=== PATIENT | male | born 1970 | race Caucasian/White ===

== ENCOUNTER 2019-12-29 19:52 | Emergency (ER) | payer SELFPAY ==
[2019-12-29] MEDS ORDERED: SODIUM CHLORIDE 0.9% 1000ML 2,000 ML IVS ONE (20:08)
[2019-12-29] MEDS ORDERED: PROMETHAZINE HCL INJ 25 MG in SODIUM CHLORIDE 0.9% 50ML 50 ML IVPB ONE (20:08)
[2019-12-29 20:10] VITALS: TEMP 97.6; O2SAT 96
[2019-12-29] MEDS ORDERED: KETOROLAC TROMETHAMINE INJ 30 MG/ML VIAL IV ONE (21:02)
[2019-12-29 21:04] VITALS: BP 122/76
[2019-12-29] MEDS ORDERED: SODIUM CHLORIDE 0.9% (FLUSH) 10 ML SYG ONE (21:25)
[2019-12-29] MEDS ORDERED: SODIUM CHLORIDE 0.9% 1000ML 1,000 ML ONE (21:26)
--- NOTE | 2019-12-29 21:58 | ED.PDOC ---
History of Present Illness - General Chief Complaint: Headache Stated Complaint: headache for the past 2 hours c N/V Time Seen by Provider: 12/29/19 19:56 Source: patient Exam Limitations: no limitations - History of Present Illness Initial Comments: The patient is a 49-year-old male presented emergency room with fairly rapid onset of headache with associated nausea and vomiting after working outside in the 100 degrees heat for an extended period of time. No focal neurological changes. No fever prior. No nuchal rigidity. No altered mental status. No syncope. No chest pain. Timing/Duration: 1-3 hours Severity: severe Improving Factors: nothing Worsening Factors: nothing Associated Symptoms: diaphoresis, loss of appetite, malaise, nausea/vomiting, weakness Allergies/Adverse Reactions: Allergies NO KNOWN ALLERGY Allergy (Verified 12/29/19 20:45) Home Medications: Ambulatory Orders NK 12/29/19 Review of Systems - Review of Systems Constitutional: States: malaise, weakness EENTM: States: no symptoms reported Respiratory: States: no symptoms reported Cardiology: States: no symptoms reported Gastrointestinal/Abdominal: States: nausea, vomiting Genitourinary: States: no symptoms reported Musculoskeletal: States: no symptoms reported Skin: States: no symptoms reported Neurological: States: see HPI Endocrine: States: excessive sweating All other Systems: No Change from Baseline Past Medical History (General) - Patient Medical History Hx Seizures: No Hx Stroke: No Hx Dementia: No Hx Asthma: No Hx of COPD: No Hx Cardiac Disorders: No Hx Congestive Heart Failure: No Hx Pacemaker: No Hx Hypertension: No Hx Thyroid Disease: No Hx Diabetes: No Hx Gastroesophageal Reflux: No Hx Renal Disease: No Hx Cancer: No Hx of HIV: No Hx Hepatitis C: No Hx MRSA: No - Vaccination History Hx Tetanus, Diphtheria Vaccination: No Hx Influenza Vaccination: No Hx Pneumococcal Vaccination: No - Social History Hx Tobacco Use: Yes Hx Chewing Tobacco Use: No Hx Alcohol Use: No Hx Substance Use: No Hx Substance Use Treatment: No Hx Depression: No Feels Threatened In Home Enviroment: No Feels Threatened In a Relationship: No Hx Physical Abuse: No Hx Emotional Abuse: No - Female History Patient is a Female of Child Bearing Age (10 -59 yrs old): No Family Medical History - Family History Mother Family History: Unknown Physical Exam - Physical Exam General Appearance: Alert, Ill Appearing Eye Exam: bilateral normal Ears, Nose, Throat: hearing grossly normal, other - Mucous membranes are fairly dry Neck: non-tender, full range of motion, supple Respiratory: lungs clear, normal breath sounds, no respiratory distress, no accessory muscle use Cardiovascular/Chest: normal peripheral pulses, regular rate, rhythm, no edema Peripheral Pulses: radial,right: 2+, radial,left: 2+ Gastrointestinal/Abdominal: non tender, soft Rectal Exam: deferred Back Exam: no CVA tenderness, no vertebral tenderness Extremity: normal range of motion, non-tender, normal inspection, no pedal edema, normal capillary refill 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 tested, alert, normal mood/affect, oriented x 3 Skin Exam: pallor Comments: Laboratory Tests 12/29/19 12/29/19 20:15 20:15 WBC 8.7 RBC 4.94 Hgb 14.9 Hct 44.3 MCV 89.7 MCH 30.2 MCHC 33.7 RDW 15.1 H Plt Count 238 MPV 9.4 Absolute Neuts (auto) 6.20 Absolute Lymphs (auto) 1.60 Absolute Monos (auto) 0.50 Absolute Eos (auto) 0.30 Absolute Basos (auto) 0.00 Neutrophils % 71.6 Lymphocytes % 18.4 L Monocytes % 6.0 Eosinophils % 3.8 Basophils % 0.2 Sodium 138 Potassium 4.3 Chloride 102 Carbon Dioxide 25 Anion Gap 15.3 BUN 19 H Creatinine 1.09 BUN/Creatinine Ratio 17.4 Random Glucose 127 H Serum Osmolality 279.5 Calcium 9.8 Magnesium 2.2 Total Bilirubin 0.5 AST 21 ALT 18 Alkaline Phosphatase 75 Creatine Kinase 115 CK-MB (CK-2) 2.7 CK-MB (CK-2) % Not Reportable Troponin I 0.03 B-Natriuretic Peptide 7.4 Serum Total Protein 8.2 Albumin 4.7 Globulin 3.5 Albumin/Globulin Ratio 1.3 Progress - Progress Progress: 12/29/19 21:59 Vital Signs - 8 hr 12/29/19 12/29/19 20:05 21:00 Temperature 97.6 F Pulse Rate [ 96 H 96 H Pulse ox] Respiratory 16 16 Rate Blood Pressure 120/86 122/76 [Left Arm] O2 Sat by Pulse 96 96 Oximetry 12/29/19 21:59 The patient is a 49-year-old male presenting with heat exhaustion. The patient received a couple liters of IV fluids along with nausea medications and a medication for the headache. No evidence of rhabdomyolysis at this time. No evidence of a stroke. The patient does need to take it easy for the next week or 2 and avoid overheating. He needs to drink plenty of fluids. He needs to maintain a bland diet. Headache and nausea have essentially resolved. He needs to keep routine follow-up with his primary care doctor. ER warnings are given. teodora hernandez [id number] Departure - Departure Clinical Impression: Heat exhaustion Qualifiers: Encounter type: initial encounter Qualified Code(s): T67.5XXA - Heat exhaustion, unspecified, initial encounter Disposition: Discharge to Home or Self Care Condition: Fair Departure Forms: ED Discharge - Pt. Copy, Patient Portal Self Enrollment Instructions: Heat Exhaustion and Heat Stroke (DC) Diet: regular diet Activity: increase activity as tolerated Home Medications: Ambulatory Orders NK 12/29/19 Additional Instructions: The patient is a 49-year-old male presenting with heat exhaustion. The patient received a couple liters of IV fluids along with nausea medications and a medication for the headache. No evidence of rhabdomyolysis at this time. No evidence of a stroke. The patient does need to take it easy for the next week or 2 and avoid overheating. He needs to drink plenty of fluids. He needs to maintain a bland diet. Headache and nausea have essentially resolved. He needs to keep routine follow-up with his primary care doctor. ER warnings are given.
== END 2019-12-29 22:14 | disposition home or self-care (01) ==
LOC: ER 19:52
DX: T67.5XXA Heat exhaustion, unspecified, initial encounter (principal); R11.2 Nausea with vomiting, unspecified; R51 Headache; F17.200 Nicotine dependence, unspecified, uncomplicated; Y92.9 Unspecified place or not applicable
CPT/HCPCS: 80053; 82550; 82553; 83735; 83880; 84484; 85025; A4216; J1885; J2550; J7030

== ENCOUNTER 2020-02-15 23:36 | Inpatient (IN) | payer SELFPAY ==
[~2020-02-15 23:36] MED LIST: SODIUM CHLORIDE 0.9% 1000ML 1,000 ML IVS ONE
[2020-02-15] MEDS ORDERED: SODIUM CHLORIDE 0.9% (FLUSH) 10 ML SYG IV PRN (23:50)
[2020-02-15] MEDS ORDERED: DICYCLOMINE HCL INJ 20 MG/2 ML AMP IM ONE (23:50)
[2020-02-15] MEDS ORDERED: ONDANSETRON INJ 4 MG/2 ML VIAL IV ONE (23:50)
[2020-02-15] MEDS ORDERED: SODIUM CHLORIDE 0.9% 1000ML 1,000 ML IVS PRN (23:50)
[2020-02-16] MEDS ORDERED: SODIUM CHLORIDE 0.9% 1000ML 1,000 ML IVS ONE ×2 (00:27→03:20)
--- NOTE | 2020-02-16 01:01 | ED.PDOC ---
History of Present Illness - General Chief Complaint: GI Problem Stated Complaint: I can't stop throwing up Time Seen by Provider: 02/15/20 23:43 Information Source: patient, RN notes reviewed, Vital Signs reviewed, EMS notes reviewed, EMS, old records Exam Limitations: no limitations - History of Present Illness Initial Comments: This is a 50-year-old male with no significant past medical history presenting to the emergency department with nausea and vomiting that began around 4:00 this afternoon. He states he was working outside building a porch. He states he has been unable to stop vomiting since that time. He is reporting some mild generalized abdominal pain related to vomiting, no fever, no headache, no weakness/numbness/tingling. He does report some dark-colored urine. No sick contacts, no suspicious food intake. He denies any diarrhea. He denies any cough/URI symptoms, no known COVID contacts. Review of Systems - Review of Systems Constitutional: Denies: chills, fever EENTM: Denies: blurred vision, double vision, nose congestion, throat pain, mouth pain Respiratory: Denies: cough, short of breath, stridor, wheezing Cardiology: Denies: chest pain, edema, syncope Gastrointestinal/Abdominal: States: abdominal pain, nausea, vomiting. Denies: constipation, diarrhea Genitourinary: Denies: dysuria, hematuria Musculoskeletal: Denies: back pain, joint pain, muscle stiffness, neck pain Skin: Denies: lesions, rash Neurological: Denies: headache, paresthesia, pre-existing deficit, tingling, weakness Endocrine: States: no symptoms reported Hematologic/Lymphatic: States: no symptoms reported Past Medical History (General) - Patient Medical History Hx Seizures: No Hx Stroke: No Hx Dementia: No Hx Asthma: No Hx of COPD: No Hx Cardiac Disorders: No Hx Congestive Heart Failure: No Hx Pacemaker: No Hx Hypertension: No Hx Thyroid Disease: No Hx Diabetes: No Hx Gastroesophageal Reflux: No Hx Renal Disease: No Hx Cancer: No Hx of HIV: No Hx Hepatitis C: No Hx MRSA: No - Vaccination History Hx Tetanus, Diphtheria Vaccination: No Hx Influenza Vaccination: No Hx Pneumococcal Vaccination: No - Social History Hx Tobacco Use: Yes Hx Chewing Tobacco Use: No Hx Alcohol Use: No Hx Substance Use: No Hx Substance Use Treatment: No Hx Depression: No Hx Physical Abuse: No Hx Emotional Abuse: No - Female History Patient is a Female of Child Bearing Age (10 -59 yrs old): No Patient : No Family Medical History - Family History Mother Family History: Unknown Father Living Status: Hx Family Stroke: Yes Hx Family Cancer: Yes - Unknown Physical Exam - Physical Exam General Appearance: Alert, Ill Appearing, Well Developed, Well Groomed Eyes, Ears, Nose, Throat Exam: PERRL/EOMI, normal ENT inspection Neck: non-tender, full range of motion, supple Respiratory: lungs clear, normal breath sounds, no respiratory distress, no accessory muscle use Cardiovascular/Chest: normal peripheral pulses, regular rate, rhythm, no edema, no gallop, no JVD, no murmur Peripheral Pulses: No deficit Gastrointestinal/Abdominal: tenderness - Mild epigastric, right upper quadrant, negative Gonsales sign, no rebound/guarding Back Exam: normal inspection, no CVA tenderness, no vertebral tenderness Extremity: normal range of motion, non-tender, normal inspection Neurologic: no motor/sensory deficits, alert, normal mood/affect, oriented x 3 Skin Exam: normal color, warm/dry Progress - Progress Progress: 02/16/20 01:31 Rechecked. Discussed labs and plan for admission. Patient reporting ongoing back pain, abdominal pain is resolved. Nausea is improving. 02/16/20 01:41 Discussed case with VERONICA Alvarez. Reviewed labs, vital signs. Will admit. DDX: Dehydration, gastroenteritis, rhabdomyolysis MDM: Patient presenting with intractable vomiting since 4 PM this afternoon after working in the heat for several hours building a porch today. He had a similar presentation last month associated with dehydration. His creatinine at that time was 1.0. Creatinine today is 3.5. Potassium is normal, LFTs at this time relatively normal. CK is 650, but given acute renal failure, suspect early rhabdomyolysis. CK will likely need to be rechecked tomorrow after IV fluids. Will admit for IV hydration and symptom control. Wellington Phipps DO [facility] #[id number] - Results/Orders Results/Orders: 02/15/20 23:50 IV Care:Saline Lock per Protoc QSHIFT Sodium Chloride 0.9% (Flush) [Saline Flush Syringe] 10 ml IV PRN PRN Sodium Chloride 0.9% 1000ML [Ns 1000 ml] 1,000 ml IVS .QD EKG STAT 02/16/20 00:27 Sodium Chloride 0.9% 1000ML [Ns 1000 ml] 1,000 ml IVS ONCE 02/16/20 23:50 EKG STAT Laboratory Results - last 24 hr 02/15/20 02/15/20 02/16/20 23:40 23:40 00:11 WBC 12.2 H RBC 5.62 Hgb 17.2 Hct 49.4 MCV 88.0 MCH 30.7 MCHC 34.8 RDW 14.8 H Plt Count 269 MPV 9.5 Absolute Neuts (auto) 10.90 H Absolute Lymphs (auto) 0.80 L Absolute Monos (auto) 0.50 Absolute Eos (auto) 0.00 Absolute Basos (auto) 0.10 Neutrophils % 88.8 H Lymphocytes % 6.2 L Monocytes % 4.0 Eosinophils % 0.1 L Basophils % 0.9 Sodium 139 Potassium 4.5 Chloride 98 L Carbon Dioxide 22 Anion Gap 23.5 H BUN 44 H Creatinine 3.51 H BUN/Creatinine Ratio 12.5 Random Glucose 179 H Serum Osmolality 293.2 Calcium 10.8 H Total Bilirubin 1.1 H Direct Bilirubin 0.1 Indirect Bilirubin 1.0 H AST 40 ALT 24 Alkaline Phosphatase 88 Creatine Kinase Serum Total Protein 9.7 H Albumin 6.0 H Lipase 24 Urine Color Dk yellow Urine Appearance Clear Urine pH 5.0 Ur Specific [place] >= 1.030 Urine Protein 100 H Urine Glucose (UA) Negative Urine Ketones 15 H Urine Blood Trace-lysed H Urine Nitrite Negative Urine Bilirubin Moderate Urine Urobilinogen 0.2 Ur Leukocyte Esterase Negative Urine RBC 1-3 Urine WBC 0 Ur Epithelial Cells 0-1 Amorphous Sediment 1+ Urine Bacteria Rare 02/16/20 00:16 WBC RBC Hgb Hct MCV MCH MCHC RDW Plt Count MPV Absolute Neuts (auto) Absolute Lymphs (auto) Absolute Monos (auto) Absolute Eos (auto) Absolute Basos (auto) Neutrophils % Lymphocytes % Monocytes % Eosinophils % Basophils % Sodium Potassium Chloride Carbon Dioxide Anion Gap BUN Creatinine BUN/Creatinine Ratio Random Glucose Serum Osmolality Calcium Total Bilirubin Direct Bilirubin Indirect Bilirubin AST ALT Alkaline Phosphatase Creatine Kinase 657 H* Serum Total Protein Albumin Lipase Urine Color Urine Appearance Urine pH Ur Specific [place] Urine Protein Urine Glucose (UA) Urine Ketones Urine Blood Urine Nitrite Urine Bilirubin Urine Urobilinogen Ur Leukocyte Esterase Urine RBC Urine WBC Ur Epithelial Cells Amorphous Sediment Urine Bacteria EKG reviewed personally by me at 0002. Sinus rhythm, rate of 75, normal axis, borderline QTC at 462, nonspecific T wave changes in the inferior and lateral leads Departure - Departure Clinical Impression: Intractable nausea and vomiting, Acute kidney injury Rhabdomyolysis Qualifiers: Rhabdomyolysis type: non-traumatic Qualified Code(s): M62.82 - Rhabdomyolysis Time of Disposition: 01:44 Disposition: Admit Patient Condition: Fair Home Medications: Ambulatory Orders NK 12/29/19 Critical Care Note - Critical Care Note Total Time (mins): 33 Comments: Patient with evidence of acute renal failure and severe dehydration. Time spent in examining the patient, reviewing old records, reviewing labs, examining the patient, documentation, reviewing cardiac output measurements, rechecks, discussions with other providers.
--- NOTE | 2020-02-16 01:55 | HP ---
SUPERVISING PHYSICIAN: Bernard Garrett M.D. CHIEF COMPLAINT: Nausea and vomiting. HISTORY OF PRESENT ILLNESS: This is a 50 year-old male patient who was outside building a porch in the heat. Several hours before he went to the Emergency Room, he felt he got overheated and started having nausea and vomiting. He also said his urine was very dark. He came to the Emergency Room. His vital signs were temperature 96.8, heart rate 72, blood pressure 132/43, respiratory rate 18, O2 saturation 98% on room air. His lab was completed and showed a WBC of 12,200 with a hemoglobin of 17.2, hematocrit 49.4. He had a left shift on his differential. Sodium 139, potassium 4.5, chloride 98, carbon dioxide 22, BUN 44, creatinine 3.51. His baseline creatinine is about 1.1, calcium 10.8, bilirubin 1.1. Liver enzymes were within normal limits. Lipase was 24. Troponin was less than 0.02. Creatinine kinase was 657. He was given fluids as well as some Zofran and Bentyl. I was called for hospital admission. PAST MEDICAL HISTORY: 1. Bradycardia presently on no medications. PAST SURGICAL HISTORY: None. OUTPATIENT MEDICATIONS: None. ALLERGIES: NO KNOWN DRUG ALLERGIES. SOCIAL HISTORY: He lives in [place]. He smokes 1 pack of cigarettes daily and has for many years. He denies any ETOH or illicit drug use. REVIEW OF SYSTEMS: GENERAL: Negative for fever, chills or weight changes. HEENT: Negative for sinus symptoms, ear pain, vision changes or sore throat. RESPIRATORY: Negative for wheezing, coughing or shortness of breath. CARDIAC: Negative for chest pain, palpitations or tachycardia. GASTROINTESTINAL: Positive for abdominal pain with nausea and vomiting. Negative for constipation or diarrhea. GENITOURINARY: Positive for dark urine. Negative for hematuria or dysuria. MUSCULOSKELETAL: Negative for arthralgias or myalgias. SKIN: Negative for lesions or rashes. NEUROLOGIC: Negative for headaches, weakness or seizures. PHYSICAL EXAMINATION: VITAL SIGNS: Temperature 98.6, heart rate 70, blood pressure 133/86, respiratory rate 16, O2 saturation 98% on room air. GENERAL: This is a 50 year-old male patient lying in his hospital bed. He is in no acute distress. HEENT: Normocephalic, atraumatic. Pupils are equal and reactive. Oropharynx is clear. NECK: Supple without mass. RESPIRATORY: Essentially clear to auscultation bilaterally. CARDIOVASCULAR: Regular rate and rhythm. GASTROINTESTINAL: Abdomen is soft, nondistended, nontender. Bowel sounds are positive. NEUROLOGIC: Awake, alert and oriented times three. Cranial nerves II-XII are grossly intact as tested. SKIN: Warm and dry. LABORATORY: Followup labs this morning show a CBC that is unremarkable. Electrolytes are basically within normal limits. BUN is 36, creatinine has improved to 2.1. Liver enzymes are within normal limits. Creatinine kinase has gone up to 947. Urinalysis is unremarkable. All other labs and films have been reviewed via the EMR. ASSESSMENT: 1. Acute kidney injury. Baseline creatinine is 1.1. Admitting creatinine is 3.5. 2. Rhabdomyolysis. 3. Dehydration with nausea and vomiting. 4. History of bradycardia presently on no medications. 5. Tobacco abuse. PLAN: The patient has been admitted to the hospital. Will continue to give him fluids and hydrate him. Will monitor his kidney function closely as well as his CPK. I have discussed smoking cessation. He will have early ambulation for DVT prophylaxis. He has a PPI for ulcer prophylaxis. Hopefully he can be discharged in the next 24 hours. Will continue to monitor closely and follow as needed. #[id number] [facility]
[2020-02-16] MEDS ORDERED: ACETAMINOPHEN 325 MG TAB PO PRN (02:48)
[2020-02-16] MEDS ORDERED: IV SET AND CAP CHANGE INJ INJ SCH (03:00)
[2020-02-16] MEDS: PANTOPRAZOLE SODIUM IV 40 MG VIAL IV SCH (05:16)
[2020-02-16] MEDS: SODIUM CHLORIDE 0.9% (FLUSH) 10 ML SYG IV PRN ×2 (05:16→18:03)
[2020-02-16] MEDS ORDERED: SODIUM CHLORIDE 0.9% (FLUSH) 10 ML SYG IV SCH (09:00)
[2020-02-16] MEDS: SODIUM CHLORIDE 0.45% 1000ML 1,000 ML IVS PRN ×2 (12:02→19:48)
[2020-02-16] MEDS: ONDANSETRON INJ 4 MG/2 ML VIAL IV PRN (13:07)
[2020-02-16] MEDS ORDERED: CALCIUM CARBONATE (ANTACID) 500 MG CHEWABLE TAB PO PRN (22:18)
[2020-02-17] MEDS: SODIUM CHLORIDE 0.45% 1000ML 1,000 ML IVS PRN (03:32)
[2020-02-17] MEDS: ONDANSETRON INJ 4 MG/2 ML VIAL IV PRN (05:21)
[2020-02-17] MEDS: PANTOPRAZOLE SODIUM IV 40 MG VIAL IV SCH (05:41)
[2020-02-17] MEDS ORDERED: KCL 20MEQ/0.45% NS 1,000 ML IVS ONE (11:37)
[2020-02-17] MEDS ORDERED: MORPHINE SULFATE INJ 10 MG/ML VIAL ONE (19:37)
[2020-02-17] MEDS ORDERED: metFORMIN XR 500 MG TAB.ER.24 PO ONE (19:37)
[2020-02-17] MEDS ORDERED: ENOXAPARIN SODIUM 30 MG/0.3 ML SYG SUBCU ONE (19:38)
--- NOTE | 2020-02-17 20:05 | PN ---
SUPERVISING PHYSICIAN: LISETH BERRY MD DATE: 02/17/20 SUBJECTIVE: Patient is lying in bed asleep. He does not have much of an appetite but he is taking some oral fluids. He said he still feels quite weak but there is no chest pain or shortness of breath. OBJECTIVE: VITAL SIGNS: Temperature 98.3, heart rate 53, blood pressure 123/72, respiratory rate 16, oxygen saturation 97% on room air. RESPIRATORY: Essentially clear to auscultation literature. CARDIAC: Regular rate and rhythm. NEUROLOGICAL: He is awake, alert, and oriented x3. LABORATORY: WBC 7.1, hemoglobin 13.9, hematocrit 39.9. Electrolytes are basically within normal limits but his bilirubin is up to 1.1. Creatinine kinase is 819. His other liver enzymes are within normal limits. All other labs and films have been reviewed via the EMR. ASSESSMENT: 1. Acute kidney injury. Baseline creatinine is 1.1. Admitting creatinine is 3.5. His creatinine has now normalized. 2. Rhabdomyolysis. 3. Dehydration with nausea and vomiting. 4. History of bradycardia presently on no medications. 5. Tobacco abuse. PLAN: We will continue present supportive care. I will continue to hydrate the patient and encourage his oral intake to improve. I did repeat his CMP and CPK for in the morning. He also had incentive spirometry. I encouraged the patient to get up and walk around. Hopefully, he can be discharged tomorrow. #[id number] [facility]
[2020-02-18] MEDS: PANTOPRAZOLE SODIUM IV 40 MG VIAL IV SCH (05:26)
[2020-02-18 10:37] VITALS: O2SAT 93
[2020-02-18 10:58] VITALS: BP 123/78; TEMP 98.2
--- NOTE | 2020-02-26 08:56 | DS ---
SUPERVISING PHYSICIAN: Otf Weston MD ADMISSION DIAGNOSIS: 1. Acute kidney injury. Baseline creatinine is 1.1. Admitting creatinine is 3.5. 2. Rhabdomyolysis. 3. Dehydration with nausea and vomiting. 4. History of bradycardia presently on no medications. 5. Tobacco abuse. DISCHARGE DIAGNOSIS: 1. Acute kidney injury. Baseline creatinine is 1.1. Admitting creatinine is 3.5. His creatinine has now normalized. 2. Rhabdomyolysis. 3. Dehydration with nausea and vomiting. 4. History of bradycardia presently on no medications. 5. Tobacco abuse. REASON FOR HOSPITALIZATION: This is a 50 year-old male patient who was outside building a porch in the heat. Several hours before he went to the Emergency Room, he felt he got overheated and started having nausea and vomiting. He also said his urine was very dark. He came to the Emergency Room. His vital signs were temperature 96.8, heart rate 72, blood pressure 132/43, respiratory rate 18, O2 saturation 98% on room air. His lab was completed and showed a WBC of 12,200 with a hemoglobin of 17.2, hematocrit 49.4. He had a left shift on his differential. Sodium 139, potassium 4.5, chloride 98, carbon dioxide 22, BUN 44, creatinine 3.51. His baseline creatinine is about 1.1, calcium 10.8, bilirubin 1.1. Liver enzymes were within normal limits. Lipase was 24. Troponin was less than 0.02. Creatinine kinase was 657. He was given fluids as well as some Zofran and Bentyl. I was called for hospital admission. LABORATORY: Discharge white count was 7,100, hemoglobin 13.9, hematocrit 39.9, platelet count 184,000. Differential was without a left shift. Chemistries showed 134, otherwise electrolytes were within normal limits. Creatinine 0.85 compared to admission creatinine of 3.51. CPK was down to 435 prior to discharge. RADIOLOGY: No radiology available to review. EKG showed sinus rhythm without any ST or T-wave changes noted. HOSPITAL COURSE: Mr. Shields was admitted for rhabdomyolysis and treated with fluids. His kidney function ddi normalize as well as his CPK was showing good trend to baseline levels. He was able to take oral intake as well as good fluids p.o. maintenance. It was felt he had stabilized well enough to continue with outpatient management. PLAN: Mr. Shields was discharged on 02/18/20 with instructions to followup and establish with [facility]. He was encouraged to push fluids to prevent dehydration and return to the Emergency Department as needed. Diet was as tolerated. Activity to increase as tolerated, avoid extreme heat until completely recovered. No medications were prescribed on discharge. He was not on any chronic medications on admission. CONDITION ON DISCHARGE: Stable and improved. DISPOSITION: The patient was discharged home. #[id number] [facility]
== END 2020-02-18 11:00 | disposition home or self-care (01) | DRG 683 ==
LOC: ER 23:36 → MS 02-16 01:54 → OBSVTOIN 02-16 01:54
PROVIDERS: ADMIT Nurse Practitioner Acute Care; ATTEND Nurse Practitioner Family
DX: N17.9 Acute kidney failure, unspecified (principal); M62.82 Rhabdomyolysis; E86.0 Dehydration; F17.210 Nicotine dependence, cigarettes, uncomplicated; K52.9 Noninfective gastroenteritis and colitis, unspecified

== ENCOUNTER 2020-03-04 10:18 | Emergency (ER) | payer SELFPAY ==
[2020-03-04] MEDS ORDERED: SODIUM CHLORIDE 0.9% 1000ML 1,000 ML IVS ONE ×2 (10:49→12:10)
[2020-03-04] MEDS ORDERED: ONDANSETRON INJ 4 MG/2 ML VIAL IV ONE (10:49)
[2020-03-04] MEDS ORDERED: PANTOPRAZOLE SODIUM IV 40 MG VIAL IV ONE (10:49)
--- NOTE | 2020-03-04 10:51 | ED.PDOC ---
History of Present Illness - General Chief Complaint: GI Problem Stated Complaint: N/V,abd pain Time Seen by Provider: 03/04/20 10:45 Additional Information: Patient is a 50-year-old male who presents to the ED with chief complaint of vomiting. 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 He feels very weak and dehydrated. He complains of diffuse mild to moderate abdominal cramping but no manuela abdominal pain. Patient has not vomited any blood and has passed no blood per rectum, or melena. Patient denies recent alcohol consumption or drug use. Patient indicates he has had these symptoms once before and has been seen in the ED and given IV fluids and discharged, he does not have a history of intestinal issues. Past surgical history is negative for abdominal surgeries. Patient denies chest pain, shortness of breath. Review of Systems - Review of Systems Constitutional: States: see HPI, weakness. Denies: chills, diaphoresis, fever Respiratory: States: no symptoms reported. Denies: cough, short of breath Cardiology: States: no symptoms reported. Denies: chest pain, palpitations Gastrointestinal/Abdominal: States: see HPI, abdominal pain - Cramping, nausea, vomiting. Denies: diarrhea Genitourinary: States: no symptoms reported. Denies: dysuria Musculoskeletal: States: no symptoms reported. Denies: muscle pain Skin: States: no symptoms reported Neurological: States: no symptoms reported All other Systems: Reviewed and Negative Past Medical History (General) - Patient Medical History Hx Seizures: No Hx Stroke: No Hx Dementia: No Hx Asthma: No Hx of COPD: No Hx Cardiac Disorders: No Hx Congestive Heart Failure: No Hx Pacemaker: No Hx Hypertension: No Hx Thyroid Disease: No Hx Diabetes: No Hx Gastroesophageal Reflux: Yes Hx Renal Disease: No Hx Cancer: No Hx of HIV: No Hx Hepatitis C: No Hx MRSA: No Surgical History: no surgical history - Vaccination History Hx Tetanus, Diphtheria Vaccination: No Hx Influenza Vaccination: Yes Hx Pneumococcal Vaccination: No - Social History Hx Tobacco Use: Yes Hx Chewing Tobacco Use: No Hx Alcohol Use: No Hx Substance Use: No Hx Substance Use Treatment: No Hx Depression: No Hx Physical Abuse: No Hx Emotional Abuse: No - Female History Patient : No Family Medical History - Family History Mother Family History: Unknown Living Status: Father Living Status: Hx Family Stroke: Yes Hx Family Cancer: Yes - Unknown Physical Exam - Physical Exam General Appearance: Alert, Ill Appearing, Unkempt, Other - Patient appears much older than his stated age Neck: supple, normal inspection Respiratory: chest non-tender, lungs clear, normal breath sounds, no respiratory distress, no accessory muscle use Cardiovascular/Chest: normal peripheral pulses, regular rate, rhythm, no edema, no gallop, no JVD, no murmur Gastrointestinal/Abdominal: normal bowel sounds, soft, tenderness - Mild upper abdominal tenderness to palpation, no guarding Back Exam: normal inspection, no CVA tenderness Extremity: normal range of motion, no pedal edema 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 03/04/20 10:55 EKG: Normal sinus rhythm, rate 65, normal axis, normal QRS, Q waves V1 and V2, normal ST segment and T waves. Negative STEMI. EKG read by Aniket Mason MD. 03/04/20 14:37 Patient reassessed and is feeling much better at this time. He has had no further episodes of emesis in the ED and says that he feels strong after IV fluids. Patient's work-up today is unremarkable with the exception of slightly elevated creatinine at 1.7 which has been addressed with 2 L of normal saline. Patient CK is not elevated and he is not in rhabdomyolysis. I have instructed patient to rest at home and not to go to work today or tomorrow and to drink plenty of fluids and patient is in agreement. He would like to go home and declines observation for IV fluids. Vital signs stable, patient is NAD and looks clinically well and I believe is safe for discharge with outpatient follow-up. Follow-up instructions, discharge instructions and return to ED precautions discussed with patient. Patient voices understanding and willingness to comply with instructions. All laboratory and radiographic results have been discussed with the patient, and all questions answered. Jennifer eagle is happy with plan. Departure - Departure Clinical Impression: Dehydration, Acute renal insufficiency Time of Disposition: 14:39 Disposition: Discharge to Home or Self Care Condition: Fair Departure Forms: ED Discharge - Pt. Copy, Patient Portal Self Enrollment Instructions: Dehydration, Adult (DC) Activity: no exercise - For 2 days Referrals: VLADISLAV OLVERA MD [Active Staff] - 1-5 Days Prescriptions: Promethazine Tab [Phenergan Tablet] 25 mg PO Q6H PRN #12 tab PRN Reason: Vomiting Home Medications: Ambulatory Orders Promethazine Tab [Phenergan Tablet] 25 mg PO Q6H PRN #12 tab 03/04/20
[2020-03-04 11:58] VITALS: O2SAT 98
[2020-03-04 15:06] VITALS: BP 127/81; TEMP 98.6
--- NOTE | 2020-03-04 20:11 | CT ---
EXAM DESCRIPTION: Abdomen/Pelvis w/Contrast CLINICAL HISTORY: abd pain, vomiting COMPARISON: None Available TECHNIQUE: CT of the abdomen and Pelvis was performed with IV contrast. This exam was performed according to our departmental dose-optimization program, which includes automated exposure control, adjustment of the mA and/or kV according to patient size and/or use of iterative reconstruction technique. FINDINGS: No lung base abnormality. No pneumoperitoneum, adenopathy or ascites. No abdominal aortic aneurysm or dissection. Small hiatal hernia. No gastric wall thickening. No calcified gallstone. The liver, spleen, pancreas, adrenals and kidneys are unremarkable. No dilated small bowel loops or mesenteric inflammation. No bladder wall thickening. The prostate is not enlarged. No colonic wall thickening or pericolonic inflammation. Normal appendix. Bilateral L5-S1 pars defects with grade 1 anterolisthesis at the same level. No acute bone lesion. IMPRESSION: Small hiatal hernia, no acute abnormality in the abdomen or pelvis to explain abdominal pain and vomiting. Bilateral L5-S1 pars defects with grade 1 anterolisthesis at the same level. Electronically signed by: Leighton Fajardo MD 03/04/2020 12:00 PM CDT
== END 2020-03-04 15:06 | disposition home or self-care (01) ==
LOC: ER 10:18
DX: E86.0 Dehydration (principal); N28.9 Disorder of kidney and ureter, unspecified; R11.2 Nausea with vomiting, unspecified; K21.9 Gastro-esophageal reflux disease without esophagitis; Z87.891 Personal history of nicotine dependence
CPT/HCPCS: 36415; 74177; 80053; 80320; 82550; 82553; 83605; 84484; 85025; 93005; J2405; J7030

== ENCOUNTER 2020-05-12 18:31 | Emergency (ER) | payer SELFPAY ==
[2020-05-12 21:15] VITALS: BP 113/70; TEMP 97; O2SAT 96
== END 2020-05-12 20:36 | disposition home or self-care (01) ==
LOC: ER 18:31
DX: Z53.21 Procedure and treatment not carried out due to patient leaving prior to being seen by health care provider (principal)

== ENCOUNTER 2020-07-18 15:05 | Emergency (ER) | payer SELFPAY ==
[2020-07-18] MEDS ORDERED: SODIUM CHLORIDE 0.9% 1000ML 1,000 ML IVS ONE (15:20)
[2020-07-18] MEDS ORDERED: ONDANSETRON INJ 4 MG/2 ML VIAL IV ONE ×2 (15:20→17:00)
--- NOTE | 2020-07-18 15:22 | ED.PDOC ---
History of Present Illness - General Time Seen by Provider: 07/18/20 15:06 Information Source: patient, RN notes reviewed, Vital Signs reviewed, old records Exam Limitations: no limitations - History of Present Illness Initial Comments: 50 yo male comes in with the c/c of midepigastric pain and 3 days of n/v. states he can't keep anything down. States this happened 1 month ago and was told he was dehydrated. Denies ETOH use. no sick contacts. subjective fever. no cough or shortness of breath. no diarrhea or constipation, no black or bloody bm. no dysuria or hematuria. Review of Systems - Review of Systems Constitutional: States: malaise. Denies: chills EENTM: Denies: throat pain Respiratory: Denies: cough, short of breath Cardiology: Denies: chest pain Gastrointestinal/Abdominal: States: abdominal pain, nausea, vomiting. Denies: constipation, diarrhea Genitourinary: Denies: dysuria, hematuria Musculoskeletal: Denies: back pain, joint pain Skin: Denies: rash Neurological: Denies: headache, numbness Endocrine: Denies: unexplained weight loss Hematologic/Lymphatic: Denies: easy bleeding, easy bruising Past Medical History (General) - Patient Medical History Hx Seizures: No Hx Stroke: No Hx Dementia: No Hx Asthma: No Hx of COPD: No Hx Cardiac Disorders: No Hx Congestive Heart Failure: No Hx Pacemaker: No Hx Hypertension: No Hx Thyroid Disease: No Hx Diabetes: No Hx Gastroesophageal Reflux: No Hx Renal Disease: No Hx Cancer: No Hx of HIV: No Hx Hepatitis C: No Hx MRSA: No - Vaccination History Hx Tetanus, Diphtheria Vaccination: No Hx Influenza Vaccination: No Hx Pneumococcal Vaccination: No - Social History Hx Tobacco Use: Yes - Pack a day Hx Chewing Tobacco Use: No Hx Alcohol Use: No Hx Substance Use: No Hx Substance Use Treatment: No Hx Depression: No Hx Physical Abuse: No Hx Emotional Abuse: No Hx Suspected Abuse: No - Female History Patient : No Family Medical History - Family History Mother Family History: Unknown Living Status: Father Living Status: Hx Family Stroke: Yes Hx Family Cancer: Yes - Unknown Physical Exam - Physical Exam General Appearance: Alert, Comfortable, No apparent distress, Well Developed, Well Groomed, Well Hydrated, Well Nourished Eyes, Ears, Nose, Throat Exam: normal ENT inspection, other - no teeth Neck: full range of motion, supple, normal inspection Respiratory: chest non-tender, lungs clear, normal breath sounds, no respiratory distress, no accessory muscle use Cardiovascular/Chest: normal peripheral pulses, regular rate, rhythm, no edema, no gallop, no JVD, no murmur Peripheral Pulses: 2+ Gastrointestinal/Abdominal: normal bowel sounds, non tender, soft, no organomegaly, no pulsatile mass Rectal Exam: deferred Back Exam: normal inspection, no CVA tenderness, no vertebral tenderness Extremity: normal range of motion, normal inspection, no calf tenderness Neurologic: no motor/sensory deficits, alert, normal mood/affect, oriented x 3 Skin Exam: normal color, warm/dry Progress - Progress Progress: 07/18/20 17:29 partial ddx: gastirtis, pancreatitis, gallstones, renal stones, other patient given zofran and IVF. states he feels better. was given apple juice. emesis x 1. Will give phenergan, zofran and order CT scan. CT abd/pelvis IMPRESSION: 1. No acute intra-abdominal abnormality. 2. Wall thickening of the visualized lower esophagus which may represents nonspecific esophagitis. 3. Right nonobstructive nephrolithiasis. 07/18/20 18:27 patient po tolerant, given GI cocktail. The data reviewed when caring for this patient included: nurse notes, prior records, etc. The history and assessments from nurses notes were reviewed and considered, and the patient's home medication list was also reviewed and considered. My assessment and the results of testing completed here in the ED were discussed with the patient. All questions were answered, and he express understanding of my assessment and the plan. He have been instructed to return if their symptoms worsen, and have been asked to follow up with their primary care physician to recheck today's presenting complaint. he is trying to get established with Dr. green. may need egd in future. return precautions given. I have reviewed medication, benefits, a lternatives and side effects. Patient decided to proceed with medication.patient discharged home in stable condition. Amy Valenzuela DO #[id number] 07/18/20 18:28 - Results/Orders Results/Orders: 07/18/20 17:00 Hold Metformin x 48Hrs [id number] Laboratory Results WBC 8.9 K/mm3 (4.8-10.8) 07/18/20 15:25 RBC 5.77 M/mm3 (4.70-6.10) 07/18/20 15:25 Hgb 17.0 gm/dL (14.0-18.0) 07/18/20 15:25 Hct 50.1 % (42.0-52.0) 07/18/20 15:25 MCV 86.8 fl (80.0-94.0) 07/18/20 15: MCH 29.5 pg (27.0-31.0) 07/18/20 15:25 MCHC 34.0 g/dL (33.0-37.0) 07/18/20 15: RDW 14.0 % (11.5-14.5) 07/18/20 15: Plt Count 231 K/mm3 (130-400) 07/18/20 15:25 MPV 9.1 fl (7.40-10.4) 07/18/20 15:25 Absolute Neuts (auto) 5.90 K/uL (1.8-6.8) 07/18/20 15:25 Absolute Lymphs (auto) 1.70 K/uL (1.0-3.4) 07/18/20 15:25 Absolute Monos (auto) 1.20 K/uL (0.2-0.8) H 07/18/20 15:25 Absolute Eos (auto) 0.00 K/uL (0.0-0.4) 07/18/20 15:25 Absolute Basos (auto) 0.10 K/uL (0.0-0.1) 07/18/20 15:25 Neutrophils % 65.9 % (42.0-78.0) 07/18/20 15:25 Lymphocytes % 18.8 % (20.0-50.0) L 07/18/20 15:25 Monocytes % 13.9 % (2.0-9.0) H 07/18/20 15:25 Eosinophils % 0.2 % (1.0-5.0) L 07/18/20 15:25 Basophils % 1.2 % (0.0-2.0) 07/18/20 15:25 Sodium 139 mmol/L (135-145) 07/18/20 15:25 Potassium 3.4 mmol/L (3.6-5.0) L 07/18/20 15:25 Chloride 94 mmol/L (101-111) L 07/18/20 15:25 Carbon Dioxide 29 mmol/L (21-31) 07/18/20 15:25 Anion Gap 19.4 (12-18) H 07/18/20 15:25 BUN 21 mg/dL (7-18) H 07/18/20 15:25 Creatinine 1.07 mg/dL (0.6-1.3) 07/18/20 15:25 BUN/Creatinine Ratio 19.6 (10-20) 07/18/20 15:25 Random Glucose 123 mg/dL (70-105) H 07/18/20 15:25 Serum Osmolality 281.9 mOsm/L (275-295) 07/18/20 15:25 Calcium 9.9 mg/dL (8.4-10.2) 07/18/20 15:25 Total Bilirubin 1.2 mg/dL (0.2-1.0) H 07/18/20 15:25 AST 23 IU/L (10-42) 07/18/20 15:25 ALT 25 IU/L (10-60) 07/18/20 15:25 Alkaline Phosphatase 65 IU/L (42-121) 07/18/20 15:25 Serum Total Protein 8.4 gm/dL (6.4-8.2) H 07/18/20 15:25 Albumin 5.4 g/dl (3.2-5.5) 07/18/20 15:25 Globulin 3.0 gm/dL (2.3-3.5) 07/18/20 15:25 Albumin/Globulin Ratio 1.8 (1.1-1.9) 07/18/20 15:25 Lipase 27 U/L (22-51) 07/18/20 15:25 Urine Color Yellow (Yellow) 07/18/20 15:50 Urine Appearance Clear (Clear) 07/18/20 15:50 Urine pH 7.0 (4.5-7.8) 07/18/20 15:50 Ur Specific [place] 1.020 (1.005-1.030) 07/18/20 15:50 Urine Protein 100 mg/dL H 07/18/20 15:50 Urine Glucose (UA) Negative mg/dL (Negative) 07/18/20 15:50 Urine Ketones 80 mg/dL (NEGATIVE) H 07/18/20 15:50 Urine Blood Trace-intact (Negative) H 07/18/20 15:50 Urine Nitrite Negative 07/18/20 15:50 Urine Bilirubin Moderate (NEGATIVE) 07/18/20 15:50 Urine Urobilinogen 1.0 mg/dL (0.2-1.0) 07/18/20 15:50 Ur Leukocyte Esterase Negative (Negative) 07/18/20 15:50 Urine RBC 1-3 /hpf 07/18/20 15:50 Urine WBC 0 /hpf 07/18/20 15:50 Ur Epithelial Cells 0 /hpf 07/18/20 15:50 Urine Bacteria 0 07/18/20 15:50 Departure - Departure Clinical Impression: Gastritis Qualifiers: Gastritis type: unspecified gastritis Chronicity: acute Gastritis bleeding: presence of bleeding unspecified Qualified Code(s): K29.00 - Acute gastritis without bleeding Abdominal pain Qualifiers: Abdominal location: epigastric Qualified Code(s): R10.13 - Epigastric pain Nausea and vomiting Qualifiers: Vomiting type: unspecified Vomiting Intractability: non-intractable Qualified Code(s): R11.2 - Nausea with vomiting, unspecified Time of Disposition: 18:07 Disposition: Discharge to Home or Self Care Instructions: Gastritis, [place] Diet, Nausea and Vomiting, Adult (DC) Diet: bland diet Activity: increase activity as tolerated Prescriptions: Famotidine 20 mg PO BID PRN #20 tab PRN Reason: Heartburn Alum & Mag Hydrox-Simethicone [Mylanta] 30 ml PO TID PRN #300 ml PRN Reason: Heartburn Promethazine Tab [Phenergan Tablet] 25 mg PO TID PRN #12 tab PRN Reason: Nausea/Vomiting Home Medications: Ambulatory Orders Alum & Mag Hydrox-Simethicone [Mylanta] 30 ml PO TID PRN #300 ml 07/18/20 Famotidine 20 mg PO BID PRN #20 tab 07/18/20 Promethazine Tab [Phenergan Tablet] 25 mg PO TID PRN #12 tab 07/18/20
[2020-07-18] MEDS ORDERED: ONDANSETRON INJ 4 MG/2 ML VIAL ONE (15:33)
[2020-07-18 15:45] VITALS: O2SAT 97
[2020-07-18] MEDS ORDERED: PROMETHAZINE HCL INJ 12.5 MG in SODIUM CHLORIDE 0.9% 50ML 50 ML IVPB ONE (16:59)
--- NOTE | 2020-07-18 17:27 | CT ---
EXAM: CT Abdomen and Pelvis With Intravenous Contrast CLINICAL HISTORY: The patient is 50 years old and is Male; abd pain upper TECHNIQUE: Axial computed tomography images of the abdomen and pelvis with intravenous contrast. Sagittal and coronal reformatted images were created and reviewed. This CT exam was performed using one or more of the following dose reduction techniques: automated exposure control, adjustment of the mA and/or kV according to patient size, and/or use of iterative reconstruction technique. COMPARISON: No relevant prior studies available. FINDINGS: Lung bases: Unremarkable. No mass. No consolidation. Mediastinum: Wall thickening of the visualized lower esophagus which may represents nonspecific esophagitis. ABDOMEN: Liver: Unremarkable. No mass. Gallbladder and bile ducts: Unremarkable. No calcified stones. No ductal dilation. Pancreas: Unremarkable. No mass. No ductal dilation. Spleen: Unremarkable. No splenomegaly. Adrenals: Unremarkable. No mass. Kidneys and ureters: No nephrolithiasis or hydronephrosis seen on the left. Punctate calculus in the right renal midportion. No hydronephrosis or ureteral calculus. Stomach and bowel: Unremarkable. No obstruction. No mucosal thickening. PELVIS: Appendix: The appendix is seen and is within normal limits Bladder: Unremarkable. No mass. Reproductive: Unremarkable as visualized. ABDOMEN and PELVIS: Intraperitoneal space: Unremarkable. No free air. No significant fluid collection. Bones/joints: Chronic bilateral L5 pars defects with grade 1 anterolisthesis of L5 on S1. No acute fracture. No dislocation. Soft tissues: Unremarkable. Vasculature: Scattered atherosclerotic vascular calcifications. No abdominal aortic aneurysm. Lymph nodes: Unremarkable. No enlarged lymph nodes. IMPRESSION: 1. No acute intra-abdominal abnormality. 2. Wall thickening of the visualized lower esophagus which may represents nonspecific esophagitis. 3. Right nonobstructive nephrolithiasis. Electronically signed by: Luis Beasley MD 07/18/2020 5:25 PM SERVICE COUNTER CASHIER
[2020-07-18] MEDS ORDERED: ALUM & MAG HYDROX-SIMETHICONE 30 ML, LIDOCAINE VISCOUS 2% 15 ML PO ONE ×2 (17:28)
[2020-07-18] MEDS ORDERED: ONDANSETRON ODT (ER DISP) 8 MG TAB PO ONE (18:09)
[2020-07-18 18:45] VITALS: BP 148/92; TEMP 100.1
== END 2020-07-18 18:45 | disposition home or self-care (01) ==
LOC: ER 15:05
DX: K29.00 Acute gastritis without bleeding (principal); Z87.891 Personal history of nicotine dependence
CPT/HCPCS: 36415; 74177; 80053; 81001; 83690; 85025; A4216; J2405; J2550; J7030

== ENCOUNTER 2020-07-20 09:59 | Emergency (ER) | payer SELFPAY ==
[2020-07-20] MEDS ORDERED: SODIUM CHLORIDE 0.9% 1000ML 1,000 ML IVS ONE (10:07)
[2020-07-20] MEDS ORDERED: ONDANSETRON INJ 4 MG/2 ML VIAL IV ONE (10:07)
--- NOTE | 2020-07-20 10:09 | ED.PDOC ---
History of Present Illness - General Time Seen by Provider: 07/20/20 10:00 Information Source: patient, RN notes reviewed, Vital Signs reviewed Exam Limitations: no limitations - History of Present Illness Initial Comments: 50 yo male presents with recurrent abdominal pain. Was seen here 2 days ago, complained of n/v/midepigastric abdominal pain at that time. Symptoms improved, but now nauseated again. Has not had BM in 2 days, but has not been eating. Denies chest pain or shortness of breath. Abdominal Pain Onset Location: epigastric Pain Radiation: no radiation Quality: burning Timing/Duration: 1 week Improving Factors: nothing Worsening Factors: eating Associated Symptoms: heartburn, nausea/vomiting Review of Systems - Review of Systems Constitutional: States: malaise. Denies: chills, fever EENTM: Denies: blurred vision, throat pain, mouth pain Respiratory: Denies: cough, short of breath Cardiology: Denies: chest pain, palpitations Gastrointestinal/Abdominal: States: abdominal pain, constipation, nausea, vomiting. Denies: diarrhea Genitourinary: Denies: dysuria, hematuria Musculoskeletal: Denies: back pain, joint pain Skin: Denies: rash Neurological: Denies: headache, weakness Endocrine: Denies: unexplained weight loss Hematologic/Lymphatic: Denies: easy bleeding, easy bruising Past Medical History (General) - Patient Medical History Hx Seizures: No Hx Stroke: No Hx Dementia: No Hx Asthma: No Hx of COPD: No Hx Cardiac Disorders: No Hx Congestive Heart Failure: No Hx Pacemaker: No Hx Hypertension: No Hx Thyroid Disease: No Hx Diabetes: No Hx Gastroesophageal Reflux: No Hx Renal Disease: No Hx Cancer: No Hx of HIV: No Hx Hepatitis C: No Hx MRSA: No - Vaccination History Hx Tetanus, Diphtheria Vaccination: No Hx Influenza Vaccination: No Hx Pneumococcal Vaccination: No - Social History Hx Tobacco Use: Yes - Pack a day Hx Chewing Tobacco Use: No Hx Alcohol Use: No Hx Substance Use: No Hx Substance Use Treatment: No Hx Depression: No Hx Physical Abuse: No Hx Emotional Abuse: No Hx Suspected Abuse: No - Female History Patient : No Family Medical History - Family History Mother Family History: Unknown Living Status: Father Living Status: Hx Family Stroke: Yes Hx Family Cancer: Yes - Unknown Physical Exam - Physical Exam General Appearance: Alert, Comfortable, No apparent distress, Well Developed, Well Groomed, Well Hydrated, Well Nourished Eyes, Ears, Nose, Throat Exam: normal ENT inspection Neck: non-tender, full range of motion, supple, normal inspection Respiratory: chest non-tender, lungs clear, normal breath sounds, no respiratory distress, no accessory muscle use Cardiovascular/Chest: normal peripheral pulses, regular rate, rhythm, no edema, no gallop, no JVD, no murmur Peripheral Pulses: 2+ Gastrointestinal/Abdominal: normal bowel sounds, non tender, soft, no organomegaly, no pulsatile mass Rectal Exam: deferred Back Exam: normal inspection, no CVA tenderness, no vertebral tenderness Extremity: normal range of motion, non-tender, normal inspection, no pedal edema, no calf tenderness, normal capillary refill Neurologic: no motor/sensory deficits, alert, normal mood/affect, oriented x 3 Skin Exam: normal color, warm/dry Progress - Progress Progress: HR drops 48-55 while sleeping. 07/20/20 11:21 Laboratory Results WBC 7.7 K/mm3 (4.8-10.8) 07/20/20 10:18 RBC 5.92 M/mm3 (4.70-6.10) 07/20/20 10:18 Hgb 17.7 gm/dL (14.0-18.0) 07/20/20 10:18 Hct 51.6 % (42.0-52.0) 07/20/20 10:18 MCV 87.1 fl (80.0-94.0) 07/20/20 10:18 MCH 29.9 pg (27.0-31.0) 07/20/20 10:18 MCHC 34.3 g/dL (33.0-37.0) 07/20/20 10:18 RDW 14.3 % (11.5-14.5) 07/20/20 10:18 Plt Count 234 K/mm3 (130-400) 07/20/20 10:18 MPV 9.2 fl (7.40-10.4) 07/20/20 10:18 Absolute Neuts (auto) 4.60 K/uL (1.8-6.8) 07/20/20 10:18 Absolute Lymphs (auto) 2.00 K/uL (1.0-3.4) 07/20/20 10:18 Absolute Monos (auto) 1.00 K/uL (0.2-0.8) H 07/20/20 10:18 Absolute Eos (auto) 0.00 K/uL (0.0-0.4) 07/20/20 10:18 Absolute Basos (auto) 0.10 K/uL (0.0-0.1) 07/20/20 10:18 Neutrophils % 59.6 % (42.0-78.0) 07/20/20 10:18 Lymphocytes % 25.4 % (20.0-50.0) 07/20/20 10:18 Monocytes % 13.3 % (2.0-9.0) H 07/20/20 10:18 Eosinophils % 0.6 % (1.0-5.0) L 07/20/20 10:18 Basophils % 1.1 % (0.0-2.0) 07/20/20 10:18 Sodium 139 mmol/L (135-145) 07/20/20 10:18 Potassium 3.7 mmol/L (3.6-5.0) 07/20/20 10:18 Chloride 95 mmol/L (101-111) L 07/20/20 10:18 Carbon Dioxide 27 mmol/L (21-31) 07/20/20 10:18 Anion Gap 20.7 (12-18) H 07/20/20 10:18 BUN 23 mg/dL (7-18) H 07/20/20 10:18 Creatinine 1.24 mg/dL (0.6-1.3) 07/20/20 10:18 BUN/Creatinine Ratio 18.5 (10-20) 07/20/20 10:18 Random Glucose 125 mg/dL (70-105) H 07/20/20 10:18 Serum Osmolality 282.7 mOsm/L (275-295) 07/20/20 10:18 Calcium 9.6 mg/dL (8.4-10.2) 07/20/20 10:18 Total Bilirubin 1.3 mg/dL (0.2-1.0) H 07/20/20 10:18 AST 21 IU/L (10-42) 07/20/20 10:18 ALT 20 IU/L (10-60) 07/20/20 10:18 Alkaline Phosphatase 60 IU/L (42-121) 07/20/20 10:18 Serum Total Protein 7.9 gm/dL (6.4-8.2) 07/20/20 10:18 Albumin 4.9 g/dl (3.2-5.5) 07/20/20 10:18 Globulin 3.0 gm/dL (2.3-3.5) 07/20/20 10:18 Albumin/Globulin Ratio 1.6 (1.1-1.9) 07/20/20 10:18 Lipase 65 U/L (22-51) H D 07/20/20 10:18 Urine Color Yellow (Yellow) 07/20/20 11:03 Urine Appearance Clear (Clear) 07/20/20 11:03 Urine pH 6.5 (4.5-7.8) 07/20/20 11:03 Ur Specific [place] >= 1.030 (1.005-1.030) 07/20/20 11:03 Urine Protein 30 mg/dL 07/20/20 11:03 Urine Glucose (UA) Negative mg/dL (Negative) 07/20/20 11:03 Urine Ketones 15 mg/dL (NEGATIVE) H 07/20/20 11:03 Urine Blood Trace-intact (Negative) H 07/20/20 11:03 Urine Nitrite Negative 07/20/20 11:03 Urine Bilirubin Moderate (NEGATIVE) 07/20/20 11:03 Urine Urobilinogen 1.0 mg/dL (0.2-1.0) 07/20/20 11:03 Ur Leukocyte Esterase Negative (Negative) 07/20/20 11:03 Urine RBC 1-3 /hpf 07/20/20 11:03 Urine WBC 0 /hpf 07/20/20 11:03 Ur Epithelial Cells 0 /hpf 07/20/20 11:03 Urine Bacteria 0 07/20/20 11:03 07/20/20 11:38 - Results/Orders Results/Orders: bedside US shows no gallstones, GBW 2mm. Patient given PPI, zofran, reglan and IVF. patient given GI cocktail, feels better. Will po challenge. patient tolerted ham sandwich. The data reviewed when caring for this patient included: nurse notes, prior records, etc. The history and assessments from nurses notes were reviewed and considered, and the patient's home medication list was also reviewed and considered. My assessment and the results of testing completed here in the ED were discussed with the patient. All questions were answered, and he express understanding of my assessment and the plan. he has been instructed to return if their symptoms worsen, and have been asked to follow up with his primary care physician to recheck today's presenting complaint. Strict return precautions given. I have reviewed medication, benefits, alternatives and side effects. Patient decided to proceed with medication. Amy Valenzuela DO #801 - EKG/XRAY/CT XRAY: abdomen - no acute pathology Departure - Departure Clinical Impression: Esophagitis Nausea and vomiting Qualifiers: Vomiting type: unspecified Vomiting Intractability: non-intractable Qualified Code(s): R11.2 - Nausea with vomiting, unspecified Disposition: Discharge to Home or Self Care Departure Forms: ED Discharge - Pt. Copy, Patient Portal Self Enrollment Instructions: Acid Reflux and GERD in Adults (DC) Diet: other - avoid spicy food, avoid alcohol, chocolate, high acidic foods. Activity: increase activity as tolerated Referrals: Phi Patterson MD [Physicians] - 1 Week Prescriptions: Omeprazole [Omeprazole Dr] 40 mg PO DAILY #21 cap Ondansetron HCl [Zofran] 4 mg PO TID PRN #15 tab PRN Reason: Vomiting Home Medications: Ambulatory Orders Alum [facility] Mag Hydrox-Simethicone [Mylanta] 30 ml PO TID PRN #300 ml 07/18/20 Famotidine 20 mg PO BID PRN #20 tab 07/18/20 Promethazine Tab [Phenergan Tablet] 25 mg PO TID PRN #12 tab 07/18/20 Omeprazole [Omeprazole Dr] 40 mg PO DAILY #21 cap 07/20/20 Ondansetron HCl [Zofran] 4 mg PO TID PRN #15 tab 07/20/20 Additional Instructions: Follow up with a primary care doctor of your choice.
[2020-07-20] MEDS ORDERED: METOCLOPRAMIDE HCL INJ 10 MG/2 ML VIAL IV ONE (10:17)
[2020-07-20] MEDS ORDERED: PANTOPRAZOLE INJECTION 40 MG in SODIUM CHLORIDE 0.9% 100ML 100 ML IVPB ONE (10:17)
--- NOTE | 2020-07-20 10:44 | RAD ---
EXAM DESCRIPTION: Abdomen Flat Upright CLINICAL HISTORY: 50 years Male, constipation, abd pain COMPARISON: None. TECHNIQUE: supine abdominal radiograph FINDINGS: Intestinal gas pattern is normal. There is no evidence of bowel obstruction or ileus. There is a relatively small amount of stool within the large intestines. No calcifications are seen overlying the urinary collecting system. There is no acute bone abnormality identified. IMPRESSION: No acute findings. Radiograph does not suggest constipation. Electronically signed by: Jean Erazo MD 07/20/2020 10:43 AM [facility]
[2020-07-20] MEDS ORDERED: ALUM & MAG HYDROX-SIMETHICONE 30 ML, LIDOCAINE VISCOUS 2% 15 ML PO ONE ×2 (10:47)
[2020-07-20 11:32] VITALS: BP 163/98
[2020-07-20 11:52] VITALS: TEMP 98.7; O2SAT 98
== END 2020-07-20 11:40 | disposition home or self-care (01) ==
LOC: ER 09:59
DX: K20.90 Esophagitis, unspecified without bleeding (principal); R11.2 Nausea with vomiting, unspecified; Z87.891 Personal history of nicotine dependence
CPT/HCPCS: 36415; 74019; 80053; 81001; 83690; 85025; J2405; J2765; J7030; J7050